=== PATIENT | male | born 1985 | race American Indian/Alaskan Native ===

== ENCOUNTER 2017-10-16 21:47 | Emergency (ER) | payer SELFPAY ==
[2017-10-16 21:47] VITALS: BMI 25.9
--- NOTE | 2017-10-16 23:06 | ED PDOC ---
Arrival/HPI - General Chief Complaint: Finger,Hand,&Wrist Time Seen by Provider: 10/16/17 22:56 Historian: Patient - History of Present Illness Narrative History of Present Illness (Text): 10/17/17 00:32 32 yo M presents to the ER c/o 1 month h/o yellowish discoloration to the nail to the L 2nd and 5th digit, he also noticed that the nail to both fingers is elevated. Reports no trauma, injury, redness, swelling, decrease in ROM, fever, and chills. Has no additional complaints. PMD none Past Medical History - Provider Review Nursing Documentation Reviewed: Yes - Past History Past History: No Previous - Infectious Disease Hx of Infectious Diseases: None - Tetanus Immunization Tetanus Immunization: Unknown - Past Medical History Past Medical History: No Previous - Cardiac Hx Cardiac Disorders: No - Pulmonary Hx Respiratory Disorders: No (SMOKES 1/2 PPD) - Neurological Hx Neurological Disorder: No - HEENT Hx HEENT Disorder: No - Renal Hx Renal Disorder: No - Endocrine/Metabolic Hx Endocrine Disorders: No - Hematological/Oncological Hx Blood Disorders: No - Integumentary Hx Dermatological Disorder: No - Musculoskeletal/Rheumatological Hx Falls: No - Gastrointestinal Hx Gastrointestinal Disorders: No - Genitourinary/Gynecological Hx Genitourinary Disorders: No - Psychiatric Hx Psychophysiologic Disorder: No Hx Depression: No Hx Substance Use: No - Past Surgical History Past Surgical History: No Previous - Anesthesia Hx Anesthesia: No Hx Anesthesia Reactions: No Hx Malignant Hyperthermia: No - Suicidal Assessment Feels Threatened In Home Enviroment: No Family/Social History - Physician Review Nursing Documentation Reviewed: Yes Family/Social History: Unknown Family HX Smoking Status: Current Some Days Smoker Hx Alcohol Use: No Hx Substance Use: No Hx Substance Use Treatment: No Allergies/Home Meds Allergies/Adverse Reactions: Allergies No Known Allergies Allergy (Unverified 02/10/14 20:25) Review of Systems - Review of Systems Constitutional: absent: Fatigue, Weight Change, Fevers Musculoskeletal: absent: Arthralgias, Back Pain, Neck Pain Skin: Other (nail discoloration). absent: Rash, Pruritis, Skin Lesions Physical Exam Vital Signs Reviewed: Yes Temperature: Afebrile Blood Pressure: Normal Pulse: Regular Respiratory Rate: Normal Appearance: Positive for: Well-Appearing, Non-Toxic, Comfortable Pain Distress: None Mental Status: Positive for: Alert and Oriented X 3 - Systems Exam Upper Extremity: Present: Normal Inspection, Normal ROM, NORMAL PULSES, Neurovascularly Intact, Capillary Refill < 2s, Norm 2-Pt Discrimination, Other ( +yellow discoloration to the L 2nd and 5th digit with elevation of the nail from the nail bed. ). No: Cyanosis, Edema, Tenderness, Swelling Neurological: Present: GCS=15, CN II-XII Intact, Motor Func Grossly Intact, Normal Sensory Function Skin: Present: Warm, Dry, Normal Color. No: Rashes Medical Decision Making ED Course and Treatment: 10/17/17 00:36 32 yo M presents to the ER c/o 1 month h/o yellowish discoloration to the nail to the L 2nd and 5th digit. Patient noted to have fungal infection of the nail of the L 2nd and 5th digit. Patient notified of likely diagnosis and the need to follow upw ith dermatology referral provided as the ER will not be the appropriate place to treat such infections. - PA / CT TECHNOLOGIST / Resident Statement MD/ has reviewed & agrees with the documentation as recorded. Disposition/Present on Arrival - Present on Arrival Any Indicators Present on Arrival: No History of DVT/PE: No History of Uncontrolled Diabetes: No Urinary Catheter: No History of Decub. Ulcer: No History Surgical Site Infection Following: None - Disposition Have Diagnosis and Disposition been Completed?: Yes Diagnosis: Tinea unguium Disposition: HOME/ ROUTINE Disposition Time: 23:03 Patient Plan: Discharge Condition: STABLE Discharge Instructions (ExitCare): Nail Avulsion (ED) Print Language: LAO Referrals: ArtSettersarabella Martinez, [Primary Care Provider] - Follow up with primary Geraldo Campos MD [Staff Provider] - Follow up with primary Forms: [employer] (Hungarian), WORK NOTE
[2017-10-17 00:37] VITALS: BP 128/74; PULSE 74; RESP 18; TEMP 98.2; O2SAT 99
== END 2017-10-16 23:12 | disposition home or self-care (01) ==
LOC: ED 21:47
DX: B35.1 Tinea unguium (principal)

== ENCOUNTER 2018-04-21 08:11 | Emergency (ER) | payer MEDICAID, OTHER ==
[2018-04-21 08:11] VITALS: BMI 25.9
[2018-04-21 08:41] VITALS: TEMP 98.6
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
[2018-04-21 10:07] VITALS: BP 127/80; PULSE 87; RESP 17; O2SAT 100
== END 2018-04-21 10:06 | disposition home or self-care (01) ==
LOC: ED 08:11
DX: B35.1 Tinea unguium (principal); R21 Rash and other nonspecific skin eruption

== ENCOUNTER 2018-11-15 23:18 | Emergency (ER) | payer MEDICAID ==
[2018-11-15 23:18] VITALS: BMI 25.9
[2018-11-15 23:31] VITALS: RESP 18; TEMP 98.2; O2SAT 97
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
[2018-11-16 01:13] VITALS: BP 115/62; PULSE 82
== END 2018-11-16 00:28 | disposition home or self-care (01) ==
LOC: ED 23:18
DX: R59.1 Generalized enlarged lymph nodes (principal)